=== PATIENT | male | born 1945 | race Caucasian/White ===

== ENCOUNTER 2019-12-12 | Emergency (ER) | payer MEDICARE ==
[2019-12-12] MEDS ORDERED: Aspirin 81 mg CHEW TAB* 81 MG TAB.CHEW PO ONE (00:28)
--- NOTE | 2019-12-12 00:29 | ED ---
HPI Chest Pain - HPI Summary HPI Summary: Patient is a 74 y/o M presenting to the ED for a chief complaint of intermittent left anterior chest pain that began while taking a walk on . Then, one hour prior to arrival, the patient had intermittent chest pain for approximately 1 hour while lying down before the chest pain resolved. No aggravating or alleviating factors are reported. He denies taking aspirin or NTG. Patient denies fever, chills, shortness of breath, cough, nausea, bilateral LE edema, hematuria, or urinary burning. He does report having trickling when he urinates. PSHx is significant for stent placement over 10 years ago for CAD. He denies tobacco use. - History of Current Complaint Chief Complaint: EDChestPainROMI Time Seen by Provider: 12/12/19 00:20 Hx Obtained From: Patient Onset/Duration: Atraumatic, Resolved Timing: Intermittent Initial Severity: Mild Current Severity: Mild Pain Intensity: 9 Pain Scale Used: 0-10 Numeric Chest Pain Location: Left Anterior Chest Pain Radiates: No Aggravating Factor(s): Nothing Alleviating Factor(s): Nothing Associated Signs and Symptoms: Positive: Chest Pain. Negative: Shortness of Breath, Fever, Chills, Nausea, Cough, Edema - Bilateral LE - Allergy/Home Medications Allergies/Adverse Reactions: Allergies Allergy/AdvReac Type Severity Reaction Status Date / Time No Known Allergies Allergy Verified 12/12/19 00:19 Home Medications: Home Medications Aspirin EC TAB* [Ecotrin EC Low Dose 81 MG*] 81 mg PO DAILY 05/27/14 [History Confirmed 07/30/18] Atorvastatin* [Lipitor*] 20 mg PO BEDTIME 05/27/14 [History Confirmed 08/08/18] Flaxseed Oil 1,000 mg PO DAILY 07/09/15 [History Confirmed 08/08/18] PMH/Surg Hx/FS Hx/Imm Hx Previously Healthy: Yes Endocrine/Hematology History: Denies: Hx Diabetes Cardiovascular History: Reports: Hx Coronary Artery Disease - 1 STENT PLACED, Hx Hypertension Denies: Hx Pacemaker/ICD Respiratory History: Denies: Hx Asthma GI History: Reports: Hx Gastroesophageal Reflux Disease - NO MEDICATION FOR- CONTROLLED WITH DIET History: Denies: Hx Renal Disease Sensory History: Reports: Hx Cataracts - BILATERAL, Hx Contacts or Glasses - GLASSES Denies: Hx Hearing Aid Opthamlomology History: Reports: Hx Cataracts - BILATERAL, Hx Contacts or Glasses - GLASSES Psychiatric History: Denies: Hx Panic Disorder - Surgical History Surgical History: Yes Surgery Procedure, Year, and Place: TONSILS, CORONARY STENT (BRINGING CARD). ORAL Hx Anesthesia Reactions: No Infectious Disease History: No Infectious Disease History: Denies: Traveled Outside the [place] in Last 30 Days - Family History Known Family History: Negative: Diabetes - Social History Occupation: Retired Lives: With Family Alcohol Use: Occasionally Hx Substance Use: No Substance Use Type: Reports: None Hx Tobacco Use: No Smoking Status (MU): Never Smoked Tobacco Review of Systems Negative: Fever, Chills Positive: Chest Pain Negative: Shortness Of Breath, Cough Negative: Nausea Positive: dysuria - "Trickling" of urine when urinating, other - Positive brown- colored urine, resolved. Negative: burning - Urinary, hematuria Negative: Edema - Bilateral LE All Other Systems Reviewed And Are Negative: Yes Physical Exam - Summary Physical Exam Summary: Constitutional: Well-developed, Well-nourished, Alert. (-) Distressed Skin: Warm, Dry HENT: Normocephalic; Atraumatic Eyes: Conjunctiva normal Neck: Musculoskeletal ROM normal neck. (-) JVD, (-) Stridor, (-) Tracheal deviation Cardio: Rhythm regular, rate normal, Heart sounds normal; Intact distal pulses; The pedal pulses are 2+ and symmetric. Radial pulses are 2+ and symmetric. (-) Murmur Pulmonary/Chest wall: Effort normal. (-) Respiratory distress, (-) Wheezes, (-) Rales Abd: Soft, (-) tenderness, (-) Distension, (-) Guarding, (-) Rebound Musculoskeletal: (-) Edema Lymph: (-) Cervical adenopathy Neuro: Alert, Oriented x3 Psych: Mood and affect Normal Triage Information Reviewed: Yes Vital Signs On Initial Exam: Initial Vitals Temp Pulse Resp BP Pulse Ox 97.6 F 63 16 166/79 3 12/12/19 00:02 12/12/19 00:02 12/12/19 00:02 12/12/19 00:02 12/12/19 00:02 Vital Signs Reviewed: Yes Procedures - Sedation Patient Received Moderate/Deep Sedation with Procedure: No Diagnostics - Vital Signs Vital Signs Temp Pulse Resp BP Pulse Ox 12/12/19 00:02 97.6 F 63 16 166/79 3 - Laboratory Result Diagrams: 12/12/19 01:38 12/12/19 01:38 Lab Statement: Any lab studies that have been ordered have been reviewed, and results considered in the medical decision making process. - EKG 00:10 Cardiac Rate: NL - 63 BPM EKG Rhythm: Sinus Rhythm ST Segment: Normal Ectopy: None Summary of EKG Findings: EKG at 00:10 shows normal sinus rhythm at 63 bpm, normal QRS, normal QTc, left axis deviation, normal ST, T-wave inversion in lead II and T-wave flattening in aVF, nonspecific EKG. Reviewed and interpreted by Dr. Wahl. Re-Evaluation - Re-Evaluation First Eval Re-Evaluation Time: 03:10 Change: Unchanged Comment: At 03:10, I updated the patient on laboratory results. Chest Pain Course/Dx - Course Course Of Treatment: Patient is a 74 y/o M presenting to the ED for a chief complaint of intermittent left anterior chest pain that began while taking a walk on 12/11/19. Later in the day, patient had intermittent chest pain for approximately 1 hour while lying down before the chest pain improved. Patient denies fever, chills, shortness of breath, cough, nausea, bilateral LE edema, hematuria, or urinary burning. He does report trickling when he urinates, but no dysuria. PSHx is significant for stent placement over 10 years ago for CAD. On exam, unremarkable findings. In the ED course, patient was given aspirin 324 mg PO. EKG at 00:10 shows normal sinus rhythm at 63 bpm, normal QRS, normal QTc, left axis deviation, normal ST, T-wave inversion in lead II and T- wave flattening in aVF, nonspecific EKG. Laboratory findings are without any significant abnormality. At 03:10, I updated the patient on laboratory results. i discussed the patient's symptoms with him at length. He states that he has had 1 second twinges of the pain twice the entire night and that they were 1/10. He was otherwise been pain free all night. The pain is not sharp. It does not radiate to his back. The pain does not feel at all similar to the pain he had with his WI in the past. He would prefer not to stay for further evaluation at this time. it was agreed that he should go home but follow-up with his primary care doctor and raisin washer. He was also advised to return if the pain were to return. Patient will be discharged with a diagnosis of chest pain. Follow up with PCP in 1 day. - Diagnoses Provider Diagnoses: Chest pain - Critical Care Time Critical Care Statement: Critical care time is provided exclusive of any time spent performing procedures. Discharge ED - Sign-Out/Discharge Documenting (check all that apply): Patient Departure - Discharge - Discharge Plan Condition: Stable Disposition: HOME Patient Education Materials: Chest Pain (ED) Print Language: ERITREAN Referrals: Moses Nolan MD [Primary Care Provider] - Additional Instructions: Follow-up with your primary care doctor and raisin washer. - Billing Disposition and Condition Condition: STABLE Disposition: Home - Attestation Statements Document Initiated by Yared: Yes Documenting Scribe: Lona Jean Provider For Whom Yared is Documenting (Include Credential): Stacie Simmons MD Scribe Attestation: ILona, scribed for Stacie Wahl MD on 12/12/19 at 0720. Scribe Documentation Reviewed: Yes Provider Attestation: The documentation as recorded by the Lona schwarz accurately reflects the service I personally performed and the decisions made by , Stacie Wahl MD Status of Scribe Document: Viewed
[2019-12-12 01:17] LABS: ALT 16 U/L (7-52); Albumin 3.8 g/dL (3.2-5.2); Albumin/Globulin Ratio 1.4 (1-3); Alkaline Phosphatase 77 U/L (34-104); BUN/Creatinine Ratio 18.3 (8-20); Blood Urea Nitrogen 21 mg/dL (6-24); CO2 Carbon Dioxide 24 mmol/L (22-32); Calcium 9.1 mg/dL (8.6-10.3); Chloride 108 mmol/L (101-111); EGFR African American 75.2 (>60); EGFR Non-African American 62.2 (>60); Globulin 2.7 g/dL (2-4); Glucose 155 mg/dL (70-100); Sodium 138 mmol/L (135-145); Total Protein 6.5 g/dL (6.4-8.9)
[2019-12-12 01:18] LABS: Troponin I 0.01 ng/mL (<0.03)
[2019-12-12 01:24] LABS: Anion Gap 6 mmol/L (2-11)
[2019-12-12 01:45] LABS: ABS Basophils 0.1 10^3/ul (0-0.2); ABS Eosinophils 0.2 10^3/ul (0-0.6); ABS Monocytes 0.7 10^3/ul (0-0.8); ABS Neutrophils 5.2 10^3/ul (1.5-7.7); Hematocrit 41 % (42-52); Hemoglobin 14.3 g/dL (14.0-18.0); Lymphocyte % 14.4 %; Mean Corpuscular HGB Conc 35 g/dL (31-36); Mean Corpuscular Hemoglobin 31 pg (27-31); Mean Corpuscular Volume 89 fL (80-94); Mean Platelet Volume 8.3 fL (7.4-10.4); Nucleated Red Blood Cells % 0.1; Platelet Count 166 10^3/uL (150-450); Red Blood Count 4.58 10^6 /uL (4.18-5.48); Red Cell Distribution Width 13 % (10-15); White Blood Count 7.2 10^3/uL (3.5-10.8)
--- NOTE | 2019-12-12 07:08 | ED ---
Progress - Progress Note Progress Note: The patient is a sign-out from Dr. Stacie Wahl MD, to Dr. Dillon Singletary MD, at change of shift at 1900 on 12/12/2019, pending second troponin and disposition. Second troponin results are negative. Discharge ED - Sign-Out/Discharge Documenting (check all that apply): Receiving Sign-Out Receiving patient FROM: Stacie Wahl - Patient is a sign-out from Dr. Stacie Wahl MD, at 1900 on 12/12/2019, pending second troponin and disposition. - Discharge Plan Condition: Stable Referrals: Moses Nolan MD [Primary Care Provider] - - Attestation Statements Document Initiated by Scribe: Yes Documenting Scribe: Kristen Fitzgerald Provider For Whom Scribe is Documenting (Include Credential): Dillon Singletary MD Scribe Attestation: Kristen Roberto, scribed for Dillon Singletary MD on 12/12/19 at 0706.
[2019-12-12] MEDS ORDERED: NS 0.9% 1000 ML** 1,000 ML IV ONE (07:14)
[2019-12-12 07:50] VITALS: BP 171/80
== END 2019-12-12 07:50 | disposition home or self-care (01) ==
LOC: ED
DX: R07.9 Chest pain, unspecified (principal); I25.10 Atherosclerotic heart disease of native coronary artery without angina pectoris; Z95.5 Presence of coronary angioplasty implant and graft; K21.9 Gastro-esophageal reflux disease without esophagitis; Z79.82 Long term (current) use of aspirin
CPT/HCPCS: 36415; 80053; 84484; 85025; 85610; 93005; 99283; A9270-GY